=== PATIENT | male | born 1965 | race Caucasian/White ===

== ENCOUNTER 2016-10-24 16:07 | Emergency (ER) | payer BC ==
[~2016-10-24] VITALS: Ht 180.3 cm; Wt 79.5 kg
[~2016-10-24 16:07] MED LIST: ASPIRIN 81M81 MG/TA2 PO; NO HOME MEDICATIONS
[2016-10-24 16:15] VITALS: TEMP 98.3
[2016-10-24] MEDS ORDERED: PERCOCET 325 MG1 TA2 PO (16:40)
[2016-10-24 19:24] VITALS: BP 121/75; PULSE 58
== END 2016-10-24 19:27 | disposition home or self-care (01) ==
LOC: COL.ER 16:07
DX: M54.5 Low back pain (principal)
CPT/HCPCS: J1170; J1885; J3360

== ENCOUNTER 2016-11-23 14:54 | Inpatient (IN) | payer BC ==
[~2016-11-23] VITALS: Ht 180.3 cm; Wt 78.6 kg
[~2016-11-23 14:54] MED LIST changes: +PERCOCET 325 MG1 TA2 PO
[2016-11-23] MEDS ORDERED: ULTRAM 50MG TAB50 MG PO (15:05)
[2016-11-23 15:18] LABS: BASO # 0.1 (0.0-0.2); BASO % 1.1 % (0.0-2.0); EOS # 0.4 (0.0-0.7); GRAN # 4.6 (1.4-6.5); GRAN % 64.6 % (42.2-75.2); HEMATOCRIT 41.5 % (42.0-52.0); HEMOGLOBIN 14.4 g/dl (13.5-18.0); LYMPH # 1.6 (1.2-3.4); LYMPH % 21.6 % (20.0-51.0); MEAN CELL VOLUME 87 fl (80.0-100.0); MEAN CORPUSCULAR HEMOGLOBIN 30 pg (27.0-31.0); MEAN CORPUSCULAR HGB CONC 35 g/dl (33.0-37.0); MEAN PLATELET VOLUME 9.9 fl (7.4-10.4); MONO # 0.5 (0.1-0.6); MONO % 7.4 % (1.7-9.3); PLATELET COUNT 252 K/mm3 (130-400); RED BLOOD COUNT 4.79 M/mm3 (4.20-5.60); REDCELL DISTRIBUTION WIDTH-CV 11.7 % (11.5-14.5); WHITE BLOOD COUNT 7.2 K/mm3 (4.8-10.8)
[2016-11-23 15:45] LABS: ADJUSTED CALCIUM 9.4 mg/dL (8.4-10.2); ALANINE AMINOTRANSFERASE 32 U/L (21-72); ALKALINE PHOSPHATASE 67 U/L (50-136); ANION GAP 13 mmol/L (7-16); BILIRUBIN,TOTAL 0.7 mg/dL (0.0-1.0); BLOOD UREA NITROGEN 14 mg/dL (9-20); CALCIUM 9.4 mg/dL (8.4-10.2); CARBON DIOXIDE 27 mmol/L (22-30); CHLORIDE 103 mmol/L (98-107); CREATININE, serum 0.95 mg/dL (0.66-1.25); GLUCOSE 132 mg/dL (74-106); LIPASE 51 U/L (23-300); SODIUM 142 mmol/L (137-145); TOTAL PROTEIN 7.2 gm/dL (6.4-8.2)
[2016-11-23 15:56] LABS: B-TYPE NATRIURETIC PEPTIDE 41 pg/mL (0-125)
[2016-11-23 15:57] LABS: TROPONIN-I < 0.012 ng/mL (0.000-0.034)
[2016-11-23 17:15] LABS: PROTHROMBIN TIME 10.9 SECONDS (9.7-12.8)
[2016-11-23 17:17] LABS: PARTIAL THROMBOPLASTIN TIME 34.7 SECONDS (26.0-37.0)
[2016-11-23 17:54] VITALS: BP 133/79; PULSE 60; TEMP 98.2
[2016-11-23 20:28] VITALS: BP 112/75; PULSE 63; TEMP 98.2
[2016-11-24 00:25] VITALS: BP 95/62; PULSE 77; TEMP 97
[2016-11-24 03:42] VITALS: BP 128/71; PULSE 76
[2016-11-24 08:15] VITALS: BP 126/89; PULSE 92; TEMP 98.8
[2016-11-24 15:52] VITALS: BP 133/79; PULSE 81; TEMP 97.9
[2016-11-24 20:47] VITALS: BP 130/78; PULSE 64; TEMP 97.7
[2016-11-25 00:57] VITALS: BP 117/59; PULSE 65; TEMP 97.8
[2016-11-25 04:03] VITALS: BP 102/57; PULSE 60; TEMP 98.1
[2016-11-25 08:02] VITALS: BP 116/57; PULSE 89; TEMP 98.3
[2016-11-25] MEDS ORDERED: XARELTO STARTER20 MG PO (09:30)
[2016-11-26 10:12] LABS: PT G20210A MUTATION B Negative (Negative)
[2016-11-27 12:04] LABS: APCRV RATIO 2.1 (>or=2.3)
[2016-11-29 09:38] LABS: PROTEIN C ACTIVITY 114 % (70-150)
[2016-11-29 10:13] LABS: PROTEIN S ACTIVITY 193 % (65-149)
== END 2016-11-25 12:11 | disposition home or self-care (01) | DRG 176 ==
LOC: COL.ER 14:54 → MEDICAL 17:14
PROVIDERS: Emergency Medicine; Internal Medicine
DX: I26.99 Other pulmonary embolism without acute cor pulmonale (principal); E78.5 Hyperlipidemia, unspecified; R91.1 Solitary pulmonary nodule; Z86.718 Personal history of other venous thrombosis and embolism; Z87.891 Personal history of nicotine dependence
CPT/HCPCS: OP; 99222-AI; 99239; G0378; J1200; J1650; J2930; Q9967

== ENCOUNTER → 2017-01-01 | Outpatient (CLI) | payer BC ==
[~2017-01-01] MED LIST changes: +ULTRAM 50MG TAB50 MG PO; +XARELTO STARTER20 MG PO
== END ==
LOC: COL.VAS 16:23
DX: M79.662 Pain in left lower leg (principal)

== ENCOUNTER → 2017-03-24 | Outpatient (CLI) | payer BC | LOC: COL.RAD 14:42 | DX: R07.9 Chest pain, unspecified (principal); Z86.711 Personal history of pulmonary embolism | CPT/HCPCS: Q9967 ==

== ENCOUNTER 2017-06-22 19:11 | Emergency (ER) | payer BC ==
[~2017-06-22] VITALS: Ht 180.3 cm; Wt 79.5 kg
[2017-06-22 19:12] VITALS: BP 134/75; TEMP 98
[2017-06-22] MEDS ORDERED: ELIQUIS 2.5 PO (19:15)
[2017-06-22 19:36] VITALS: PULSE 80
== END 2017-06-22 19:37 | disposition home or self-care (01) ==
LOC: COL.ER 19:11
DX: S61.411A Laceration without foreign body of right hand, initial encounter (principal); Z87.891 Personal history of nicotine dependence; W45.0XXA Nail entering through skin, initial encounter; Y92.009 Unspecified place in unspecified non-institutional (private) residence as the place of occurrence of the external cause

== ENCOUNTER 2017-11-13 11:14 | Emergency (ER) | payer BC ==
[~2017-11-13] VITALS: Ht 180.3 cm; Wt 79.5 kg
[~2017-11-13 11:14] MED LIST changes: +ELIQUIS 2.5 PO
[2017-11-13 11:17] VITALS: TEMP 97.8
[2017-11-13 12:11] LABS: BASO # 0.1 (0.0-0.2); BASO % 1.3 % (0.0-2.0); EOS # 0.1 (0.0-0.7); EOS % 3.1 % (0-4.0); GRAN # 2.8 (1.4-6.5); HEMATOCRIT 41.8 % (42.0-52.0); HEMOGLOBIN 14.6 g/dl (13.5-18.0); LYMPH # 1.3 (1.2-3.4); LYMPH % 27.6 % (20.0-51.0); MEAN CELL VOLUME 88 fl (80.0-100.0); MEAN CORPUSCULAR HEMOGLOBIN 31 pg (27.0-31.0); MEAN CORPUSCULAR HGB CONC 35 g/dl (33.0-37.0); MEAN PLATELET VOLUME 9.7 fl (7.4-10.4); MONO # 0.3 (0.1-0.6); MONO % 6.6 % (1.7-9.3); PLATELET COUNT 228 K/mm3 (130-400); RED BLOOD COUNT 4.77 M/mm3 (4.20-5.60); REDCELL DISTRIBUTION WIDTH-CV 12.1 % (11.5-14.5)
[2017-11-13 12:22] LABS: ALBUMIN 4.3 gm/dL (3.5-5.0); BILIRUBIN,TOTAL 0.4 mg/dL (0.0-1.0); CALCIUM 9.2 mg/dL (8.4-10.2); CREATININE, serum 0.97 mg/dL (0.66-1.25); POTASSIUM 4.3 mmol/L (3.4-5.0)
[2017-11-13 13:38] VITALS: BP 134/93; PULSE 60
== END 2017-11-13 13:40 | disposition home or self-care (01) ==
LOC: COL.ER 11:14
PROVIDERS: Family Medicine
DX: D68.51 Activated protein C resistance (principal); R07.89 Other chest pain; Z86.711 Personal history of pulmonary embolism
CPT/HCPCS: J1200; J7030; Q9967

== ENCOUNTER 2019-10-18 23:08 | Emergency (ER) | payer BC ==
[~2019-10-18] VITALS: Ht 177.8 cm; Wt 79.5 kg
[2019-10-18 23:22] VITALS: TEMP 97.5
[2019-10-19 00:21] LABS: BASO # 0.1 (0.0-0.2); BASO % 1.1 % (0.0-2.0); EOS # 0.3 (0.0-0.7); EOS % 5.6 % (0-4.0); GRAN # 2.7 (1.4-6.5); GRAN % 49.1 % (42.2-75.2); HEMATOCRIT 40.9 % (42.0-52.0); HEMOGLOBIN 13.6 g/dl (13.5-18.0); LYMPH % 35.5 % (20.0-51.0); MEAN CELL VOLUME 89 fl (80.0-100.0); MEAN CORPUSCULAR HEMOGLOBIN 30 pg (27.0-31.0); MEAN CORPUSCULAR HGB CONC 33 g/dl (33.0-37.0); MEAN PLATELET VOLUME 9.8 fl (7.4-10.4); MONO # 0.5 (0.1-0.6); MONO % 8.3 % (1.7-9.3); PLATELET COUNT 245 K/mm3 (130-400); REDCELL DISTRIBUTION WIDTH-CV 12.3 % (11.5-14.5)
[2019-10-19 00:32] LABS: ALANINE AMINOTRANSFERASE 32 U/L (21-72); ALBUMIN 4.1 gm/dL (3.5-5.0); ALKALINE PHOSPHATASE 72 U/L (50-136); ANION GAP 8 mmol/L (7-16); AST,SGOT 26 U/L (15-37); BILIRUBIN,TOTAL 0.3 mg/dL (0.0-1.0); BLOOD UREA NITROGEN 16 mg/dL (9-20); CALCIUM 9.1 mg/dL (8.4-10.2); CARBON DIOXIDE 27 mmol/L (22-30); CHLORIDE 105 mmol/L (98-107); GLUCOSE 90 mg/dL (74-106); POTASSIUM 3.9 mmol/L (3.4-5.0); SODIUM 141 mmol/L (137-145); TOTAL PROTEIN 6.7 gm/dL (6.4-8.2)
[2019-10-19 00:45] LABS: TROPONIN-I < 0.012 ng/mL (0.000-0.035)
[2019-10-19 02:55] VITALS: BP 132/86; PULSE 60
== END 2019-10-19 03:01 | disposition home or self-care (01) ==
LOC: COL.ER 23:08
PROVIDERS: Emergency Medicine
DX: M25.512 Pain in left shoulder (principal); F17.220 Nicotine dependence, chewing tobacco, uncomplicated; Z86.711 Personal history of pulmonary embolism; Z79.82 Long term (current) use of aspirin

== ENCOUNTER → 2021-10-29 | Outpatient (CLI) | payer BC ==
[~2021-10-29] VITALS: Ht 177.8 cm; Wt 82.2 kg
[~2021-10-29] MED LIST changes: +ASPIRIN 32325 MG/TA1 PO; +NEXIUM 20MG20 MG PO
[2021-10-29 06:48] VITALS: BP 141/82; PULSE 77; TEMP 98.7
[2021-10-29 07:55] VITALS: BP 138/99; PULSE 71
== END ==
LOC: COL.RAD 10-19 06:30
DX: M48.061 Spinal stenosis, lumbar region without neurogenic claudication (principal); M51.16 Intervertebral disc disorders with radiculopathy, lumbar region
CPT/HCPCS: J3301